=== PATIENT | male | born 1970 | race Hispanic/Latino ===

== ENCOUNTER 2018-04-17 08:09 | Outpatient (CLI) | payer BC | END 2018-04-17 08:10 | disposition home or self-care (01) | LOC: DTY/OP 08:09 | PROVIDERS: ATTEND Specialist | DX: Z01.818 Encounter for other preprocedural examination (principal); E66.01 Morbid (severe) obesity due to excess calories | CPT/HCPCS: 97802 ==

== ENCOUNTER 2018-05-31 07:23 | Outpatient (CLI) | payer BC ==
[2018-05-31 11:33] LABS: Anion Gap 15 mmol/L (10-20); BUN (Urea Nitrogen) 18 mg/dL (8.9-20.6); Calc. Creatinine Clearance 0 mL/min (70-130); Calcium 9.8 mg/dL (7.8-10.44); Carbon Dioxide 23 mmol/L (22-29); Chloride 99 mmol/L (98-107); Estimated GFR-MDRD Greater than 90; Glucose 189 mg/dL (70-105); Sodium 133 mmol/L (136-145)
--- NOTE | 2018-06-01 07:03 | EKG ---
Test Reason : Blood Pressure : / mmHG Vent. Rate : 075 BPM Atrial Rate : 075 BPM P-R Int : 168 ms QRS Dur : 134 ms QT Int : 406 ms P-R-T Axes : 056 -72 061 degrees QTc Int : 453 ms Normal sinus rhythm Left bundle branch block Abnormal ECG No previous ECGs available Confirmed by SHERICE BEAUCHAMP ([id number]) on 06/01/2018 7:03:18 AM Referred By: ANITA Confirmed By:SHERICE BEAUCHAMP
== END 2018-05-31 07:24 | disposition home or self-care (01) ==
LOC: LABBT 07:23
PROVIDERS: ATTEND Specialist
DX: Z01.818 Encounter for other preprocedural examination (principal); E66.01 Morbid (severe) obesity due to excess calories; I10 Essential (primary) hypertension; E11.9 Type 2 diabetes mellitus without complications
CPT/HCPCS: 80048; 93005; 93010

== ENCOUNTER 2018-05-31 10:30 | Inpatient (IN) | payer BC ==
--- NOTE | 2018-06-01 07:51 | HP ---
HISTORY OF PRESENT ILLNESS: Austin Gar is a 47-year-old male patient, who attended our bariatric seminar and has discussed with his sister, who had a Alexi-en-Y gastric bypass and a friend, who had a laparoscopic sleeve gastrectomy regarding his choices. His sister had problems after gastric bypass with internal hernia requiring revision. After consideration and attending our seminar, the patient has decided to pursue laparoscopic sleeve gastrectomy. He has comorbidities of type 2 diabetes mellitus without insulin requirements, taking metformin and glyburide, and high blood pressure. He is followed by Dr. Beck Lopez. The patient works in doing supervisory, mostly office work, sometimes driving, working for the [employer]. He is single, but has children, who live in [place]. TOBACCO: None for more than three years. ALCOHOL: None. PAST SURGICAL HISTORY: Circumcision. PAST MEDICAL HISTORY: Diabetes mellitus and hypertension. MEDICATIONS: 1. Metformin 500 mg two capsules twice a day. 2. . 3. Glimepiride 2 mg tablets one tablet with breakfast and one tablet with evening meal. REVIEW OF SYSTEMS: Ten-point noncontributory. He does chew tobacco. The patient has had numerous weight loss efforts, losing up to 15 pounds utmost, but only to gain it back. He has not enjoyed a durable nonsurgical weight loss despite many efforts. He has tried exercise programs without durable results. He hopes to successfully lose weight to resolve his diabetes and high blood pressure, and he would like to be healthier and live longer. FAMILY HISTORY: Diabetes, hypertension, and stroke. PHYSICAL EXAMINATION: VITAL SIGNS: 323 pounds, 5 feet 10 inches, 46 BMI, 206/106, 96, 96.1 degrees. HEAD, EARS, EYES, NOSE AND THROAT: Unremarkable. LUNGS: Clear to auscultation. CARDIAC: Regular rate and rhythm without murmur or gallop. ABDOMEN: Obese, soft, and nontender. EXTREMITIES: Unremarkable. ASSESSMENT AND PLAN: Morbid obesity, 5 feet 10 inches, 323 pounds, 46 BMI. Agree with his choice of laparoscopic sleeve gastrectomy. Risks and benefits discussed. Questions answered. He is fasting today and we will obtain preoperative surgical labs today and we will arrange appointments with dietary and Psychology and proceed with laparoscopic sleeve gastrectomy after these measures. He will see me on a preoperative visit. He has comorbidities of hypertension, diabetes, noninsulin dependent type 2. Job ID: [id number]
--- NOTE | 2018-06-01 07:52 | HP ---
HISTORY OF PRESENT ILLNESS: Austin Gar is a 47-year-old male patient, who is 5 feet and 10 inches, initially presenting 323 pounds, 46 BMI; today, 311 pounds, 44 BMI, has attended our bariatric seminar, visited with our wool fleece sorter since psychologist has endorsed as a good candidate for bariatric surgery. He has comorbidities of diabetes, noninsulin dependent, and hypertension. He takes metformin, glimepiride, and losartan/hydrochlorothiazide. Operation reviewed with the patient today. Questions answered. The risks and benefits explained. He consents. Plan is for laparoscopic sleeve gastrectomy. He has had successful preoperative weight loss and he should be a good candidate and do well. Expect him to be hospitalized overnight and go home the next day. TOBACCO: None for more than three years. ALCOHOL: None. PAST SURGICAL HISTORY: Circumcision. PAST MEDICAL HISTORY: Diabetes mellitus and hypertension. MEDICATIONS: 1. Metformin 500 mg two capsules twice a day. 2. . 3. Glimepiride 2 mg tablets one tablet with breakfast and one tablet with evening meal. REVIEW OF SYSTEMS: Ten-point noncontributory. He does chew tobacco. The patient has had numerous weight loss efforts, losing up to 15 pounds utmost, but only to gain it back. He has not enjoyed a durable nonsurgical weight loss despite many efforts. He has tried exercise programs without durable results. He hopes to successfully lose weight to resolve his diabetes and high blood pressure, and he would like to be healthier and live longer. FAMILY HISTORY: Diabetes, hypertension, and stroke. PHYSICAL EXAMINATION: VITAL SIGNS: 311 pounds, 44 BMI, 5 feet and 10 inches. HEAD, EARS, EYES, NOSE, AND THROAT: Unremarkable. LUNGS: Clear to auscultation. CARDIAC: Regular rate and rhythm without murmur or gallop. ABDOMEN: Soft and nontender. No masses. Obese. EXTREMITIES: Unremarkable. ASSESSMENT AND PLAN: Morbid obesity with comorbidities, hypertension, rda-xlhatal-mttuusnlb diabetes mellitus. We will plan laparoscopic sleeve gastrectomy. Risks and benefits thus explained. He consents. Job ID: [id number]
[2018-07-26 10:35] VITALS: BMI 44.0
[2018-08-01] MEDS ORDERED: cefOXitin 2 GM VIAL ONE (08:42)
[2018-08-01] MEDS ORDERED: Ketorolac Tromethamine 30 MG/ML VIAL ONE (08:42)
[2018-08-01] MEDS ORDERED: Sodium Chloride 0.9% 10 ML ONE (08:42)
[2018-08-01] MEDS ORDERED: Labetalol HCl 100 MG/20 ML VIAL ONE (08:42)
[2018-08-01] MEDS ORDERED: Bupivacaine/Epinephrine 0.25% 30 ML VIAL ONE (08:44)
[2018-08-01] MEDS ORDERED: Fentanyl 100 MCG/2 ML VIAL ONE ×2 (09:22→12:48)
[2018-08-01] MEDS ORDERED: Dexmedetomidine 200 MCG/2 ML VIAL ONE (09:23)
[2018-08-01] MEDS ORDERED: Heparin 5,000 UNITS/ML VIAL ONE (09:31)
[2018-08-01] MEDS ORDERED: Dextrose 50% Abboject 50 ML SYRINGE SLOW IVP PRN (09:46)
[2018-08-01] MEDS ORDERED: diphenhydrAMINE 50 MG/ML VIAL IVP PRN (09:46)
[2018-08-01] MEDS ORDERED: Ondansetron PF 4 MG/2 ML Vial IVP PRN (09:46)
[2018-08-01] MEDS ORDERED: Morphine 4 MG/ML VIAL SLOW IVP PRN (09:46)
[2018-08-01] MEDS ORDERED: hydrALAZINE 20 MG/ML VIAL SLOW IVP PRN (09:46)
[2018-08-01] MEDS ORDERED: Hydrocodone-Acetamin 15 ML UDCUP PO PRN (09:46)
[2018-08-01] MEDS ORDERED: Dextrose 5% in Water 1,000 ML IV PRN (09:46)
[2018-08-01] MEDS ORDERED: traMADol HCl 50 MG TAB PO PRN ×2 (09:49)
[2018-08-01] MEDS ORDERED: Morphine 2 MG/ML SYRINGE SLOW IVP PRN (11:46)
--- NOTE | 2018-08-01 13:47 | OP ---
DATE OF PROCEDURE: 08/01/2018 PREOPERATIVE DIAGNOSES: Morbid obesity. Preoperative weight 323 pounds, 46 BMI. Just prior to surgery, 311 pounds, 44 BMI. Comorbidities, diabetes mellitus, hypertension, cardiac clearance. Preoperatively, Dr. Kwan, cardiac catheterization negative. PROCEDURES PERFORMED: Laparoscopic sleeve gastrectomy with a 36-Uzbek bougie staple line within 4 cm of pylorus. No staple reinforcement used. Completion of upper endoscopy. ANESTHESIA: General, local 0.25% Marcaine with epinephrine 60 mL. DESCRIPTION OF PROCEDURE: The patient was taken to the operating room where under general anesthesia, abdomen was prepared with ChloraPrep and draped in routine fashion. Local anesthetic was infiltrated into the skin and subcutaneous tissue about each port site. Supraumbilical incision was made. Pneumoperitoneum to 15 mmHg was obtained with a Veress needle, replacing with a 5 port, video laparoscope inserted. Bilateral far lateral subcostal incision was made and 5 port placed. Bilateral midclavicular upper abdominal incision was made and a 15 mm port placed on the left and a 12 port placed on the right. Subxiphoid incision made and Steffany liver retractor was used to reflect the left lobe of the liver, which was slightly fatty but not severely. It was mobile and malleable. Laparoscopic sleeve gastrectomy undertaken, dividing the gastrocolic ligament with the LigaSure adjacent to the greater curvature up to the angle of His which was dissected free, visualizing the crura, noting it to be free of hernia. Dissection distally within 4 cm of the pylorus and freeing the posterior area of the stomach, mobilizing it completely. A 36-Uzbek bougie placed in proper position along the lesser curvature of the stomach under laparoscopic visualization, properly positioned and sleeve gastrectomy undertaken with initial green load fire and then gold and then blue load fires, taking care to avoid narrowing of the incisura and completing the sleeve gastrectomy, taking care to avoid the gastroesophageal junction. Stomach removed. Good hemostasis noted and achieved with clips. Stomach removed and GraNee needle 0 Vicryl suture used [id number] to close the 15 mm port site of stomach extraction. Completion of endoscopy performed, passing this endoscope easily through the esophagus, stomach, visualizing the pylorus, withdrawn and noting no leaks or bleeding or problems. Pneumoperitoneum evacuated. All instruments were removed. All skin incisions were approximated with subdermal 4-0 Monocryl and [place] glue applied. Job ID: [id number]
[2018-08-01] MEDS: Ketorolac Tromethamine 30 MG/ML VIAL IVP SCH ×2 (15:25→18:26)
[2018-08-01] MEDS: Lactated Ringer's 1,000 ML IV SCH ×3 (15:25→20:26)
[2018-08-01] MEDS ORDERED: Ondansetron PF 4 MG/2 ML Vial ONE (15:37)
[2018-08-01] MEDS ORDERED: Lidocaine 1% PF 5 ML VIAL ONE (15:37)
[2018-08-01] MEDS ORDERED: Dexamethasone 20 MG/5 ML VIAL ONE (15:37)
[2018-08-01] MEDS ORDERED: Rocuronium Bromide 10 MG/ML (10ML VIAL) ONE (15:37)
[2018-08-01] MEDS ORDERED: PROPOFOL 200 MG/20 ML VIAL ONE (15:37)
[2018-08-01] MEDS ORDERED: PHENYLEPHRINE-NS 100 MCG/ML 10 ML SYRINGE ONE (15:37)
[2018-08-01] MEDS ORDERED: Glycopyrrolate 0.2 MG/ML 5 ML SYRINGE ONE (15:37)
[2018-08-01] MEDS ORDERED: ePHEDrine 50 MG/ML VIAL ONE (15:37)
[2018-08-01] MEDS: Acetaminophen 1,000 MG in Premix Bag 1 BAG IVPB SCH ×2 (16:20→20:17)
[2018-08-01] MEDS: HumaLOG 300 UNITS/3 ML VIAL SC PRN (20:38)
[2018-08-01] MEDS ORDERED: Enoxaparin Sodium 40 MG/0.4 ML SYRINGE SC SCH (21:00)
[2018-08-02] MEDS: Ketorolac Tromethamine 30 MG/ML VIAL IVP SCH ×3 (01:00→14:11)
[2018-08-02] MEDS: Acetaminophen 1,000 MG in Premix Bag 1 BAG IVPB SCH ×2 (04:00→10:19)
[2018-08-02 04:42] LABS: #Lymphocytes 1.9 thou/uL (1.20-3.40); #Monocytes 0.8 thou/uL (0.11-0.59); #Neutrophils 7.2 thou/uL (1.40-6.50); %Basophils 0.1 % (0.0-1.0); %Eosinophils 0.2 % (0.0-10.0); %Lymphocytes 19.2 % (21.0-51.0); %Monocytes 8.1 % (0.0-10.0); %Neutrophils 72.5 % (42.0-75.0); Hemoglobin 12.4 g/dL (14.0-18.0); Mean Corpuscular HGB CONC 33.4 g/dL (32.0-36.0); Mean Corpuscular Hemoglobin 28.2 pg (27.0-31.0); Mean Corpuscular Volume 84.6 fL (78.0-98.0); Mean Platelet Volume 7.1 fL (7.4-10.4); Platelet Count 211 thou/uL (130-400); RBC Distribution Width 12.2 % (11.5-14.5); Red Blood Cell (RBC) Count 4.39 mill/uL (4.70-6.10); White Blood Cell (WBC) Count 9.9 thou/uL (4.8-10.8)
[2018-08-02 05:03] LABS: Anion Gap 14 mmol/L (10-20); BUN (Urea Nitrogen) 22 mg/dL (8.9-20.6); Calc. Creatinine Clearance 211 mL/min (70-130); Calcium 9.4 mg/dL (7.8-10.44); Carbon Dioxide 25 mmol/L (22-29); Chloride 98 mmol/L (98-107); Estimated GFR-MDRD Greater than 90; Glucose 270 mg/dL (70-105); Potassium 4.3 mmol/L (3.5-5.1); Sodium 133 mmol/L (136-145)
[2018-08-02] MEDS: HumaLOG 300 UNITS/3 ML VIAL SC PRN (05:25)
[2018-08-02] MEDS ORDERED: Pantoprazole 40 MG VIAL IVP SCH (09:00)
[2018-08-02] MEDS ORDERED: Acetaminophen 500 MG TAB PO PRN (09:49)
[2018-08-02] MEDS: Lactated Ringer's 1,000 ML IV SCH (10:47)
[2018-08-02 12:01] VITALS: BP 128/77; TEMP 97.7
--- NOTE | 2018-08-02 14:41 | PRG ---
DATE OF SERVICE: 08/02/2018 SUBJECTIVE: Austin Gar is doing well post laparoscopic sleeve gastrectomy. This morning, his hemoglobin is 12. His basic metabolic profile is normal. Accu-Cheks . OBJECTIVE: VITAL SIGNS: Temperature 97.7, heart rate 71, and blood pressure 120/77. GENERAL: He is tolerating his liquids without nausea or vomiting. ABDOMEN: Soft and nontender. Surgical wounds look good. LUNGS: Clear to auscultation. CARDIAC: Regular rate and rhythm without murmur or gallop. ABDOMEN: Soft and nontender. ASSESSMENT AND PLAN: Doing well status post laparoscopic sleeve gastrectomy. Glucose is high. Continue his metformin. The patient says his pain control is good, in fact he has not asked for anything. He has Tylenol and Ultram as needed for pain. He can return to work Monday in 4 days. Activity as tolerated. Job ID: [id number]
--- NOTE | 2018-08-03 10:37 | DIS ---
DATE OF ADMISSION: 08/01/2018 DATE OF DISCHARGE: 08/02/2018 DISCHARGE MEDICATIONS: 1. Tylenol 1000 mg p.o. q.i.d. p.r.n. pain. 2. Ultram p.r.n. pain. 3. Protonix 40 mg a day. 4. Metformin 500 b.i.d. 5. Losartan 50/12.5 daily. DISCHARGE INSTRUCTIONS: Follow up in my office per appointment in 1 to 2 weeks. Diet is bariatric liquids, progress as instructed. He can return to work in 5 days. No lifting restrictions. He does not need to crush medications. HISTORY: A 48-year-old male patient, 5 feet 10 inches, 323 pounds, initially presenting preoperative laparoscopic sleeve gastrectomy, today 323 pounds, 46 BMI, has attended out bariatric seminar, saw him initially with an abnormal EKG. Saw Dr. Kwan, equivocal cardiac stress test, undergone cardiac catheterization that was normal. He presents now for sleeve gastrectomy plans. Psychology has endorsed him as a good candidate with reasonable expectations. Comorbidities, diabetes mellitus, non-insulin dependent, on metformin and hypertension. He is followed by Dr. Beck Lopez, but will be changing primary care soon. A 48-year-old male patient presenting with the above medical problems, has had cardiac clearance now, admitted after undergoing laparoscopic sleeve gastrectomy, tolerating his bariatric clears and will advance per protocol and follow up my office per appointment. Job ID: [id number]
== END 2018-08-02 14:15 | disposition home or self-care (01) | DRG 621 ==
LOC: EEVIPCON 06-06 10:30 → SURG A 08-01 07:31 → SJJU 08-01 13:36
PROVIDERS: ADMIT Specialist; ATTEND Specialist
PROC: 0DB64Z3 Excision of Stomach, Percutaneous Endoscopic Approach, Vertical (ICD-10-PCS; principal; 2018-08-01)
PROC: 0DJ08ZZ Inspection of Upper Intestinal Tract, Via Natural or Artificial Opening Endoscopic (ICD-10-PCS; 2018-08-01)
DX: E66.01 Morbid (severe) obesity due to excess calories (principal); E11.9 Type 2 diabetes mellitus without complications; I10 Essential (primary) hypertension; F17.220 Nicotine dependence, chewing tobacco, uncomplicated; Z79.84 Long term (current) use of oral hypoglycemic drugs; Z68.41 Body mass index [BMI] 40.0-44.9, adult
CPT/HCPCS: 36415; 36416; 80048; 85025; 88307; 88312; C9113; J0131; J0360; J0690; J0694; J1100; J1644; J1650; J1885; J2001; J2405; J2704; J3010; J3490

== ENCOUNTER 2018-07-26 00:07 | Outpatient (CLI) | payer BC ==
[2018-07-26 11:43] LABS: Anion Gap 12 mmol/L (10-20); BUN (Urea Nitrogen) 14 mg/dL (8.9-20.6); Calc. Creatinine Clearance 0 mL/min (70-130); Calcium 9.5 mg/dL (7.8-10.44); Carbon Dioxide 27 mmol/L (22-29); Chloride 100 mmol/L (98-107); Estimated GFR-MDRD Greater than 90; Glucose 199 mg/dL (70-105); Potassium 4.1 mmol/L (3.5-5.1); Sodium 135 mmol/L (136-145)
--- NOTE | 2018-07-27 07:34 | HP ---
HISTORY OF PRESENT ILLNESS: Austin Gar is a 48-year-old male patient whom I initially saw in May 2018 preparing for laparoscopic sleeve gastrectomy. His preoperative EKG was normal. He saw Dr. Kwan, underwent stress test, eventual cardiac catheterization that was unremarkable. The patient now is ready to proceed with laparoscopic sleeve gastrectomy. His initial weight when I saw him was 323 pounds, 46 BMI, currently 316 pounds, 45 BMI. The patient has met with our dietitian, understands risks, benefits of the procedure, questions answered. We will proceed laparoscopic sleeve gastrectomy. MEDICATIONS: 1. Metformin 500 mg twice a day. 2. Losartan hydrochlorothiazide mg once a day. PAST MEDICAL HISTORY: Hypertension, diabetes mellitus, and obesity. PAST SURGICAL HISTORY: None. Cardiac catheterization preparation negative, seen by Dr. Kwan. Tobacco cessation 2004, one pack per day. Prior alcohol, currently none, rarely. PHYSICAL EXAMINATION: VITAL SIGNS: Height 5 feet 10 inches, 316 pounds, and 45 BMI. HEAD, EARS, EYES, NOSE, AND THROAT: Unremarkable. LUNGS: Clear to auscultation. CARDIAC: Regular rate and rhythm without murmur or gallop. ABDOMEN: Soft, nontender, and obese. EXTREMITIES: Unremarkable. ASSESSMENT AND PLAN: Morbid obesity with comorbidities of hypertension, diabetes. PLAN: Has had normal cardiac catheterization. Negative workup by Dr. Kwan. Proceed with laparoscopic sleeve gastrectomy. He understands risks and benefits of the procedure and consents. Job ID: [id number]
== END 2018-07-26 00:08 | disposition home or self-care (01) ==
LOC: LABBT 00:07
PROVIDERS: ATTEND Specialist
DX: Z01.812 Encounter for preprocedural laboratory examination (principal); I10 Essential (primary) hypertension; E11.9 Type 2 diabetes mellitus without complications; E66.01 Morbid (severe) obesity due to excess calories
CPT/HCPCS: 80048